=== PATIENT | male | born 1990 | race Caucasian/White ===

== ENCOUNTER 2018-03-06 09:16 | Emergency (ER) | payer SELFPAY ==
[~2018-03-06] VITALS: Ht 167.6 cm; Wt 78.5 kg
[2018-03-06 09:24] VITALS: Ht 167.6 cm; Wt 78.5 kg
[2018-03-06 11:39] VITALS: BP 119/79
== END 2018-03-06 11:40 | disposition home or self-care (01) ==
LOC: ED 09:16
DX: S93.401A Sprain of unspecified ligament of right ankle, initial encounter (principal); Y93.51 Activity, roller skating (inline) and skateboarding; Y92.89 Other specified places as the place of occurrence of the external cause; Y99.8 Other external cause status